=== PATIENT | female | born 2000 | race Asian ===

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

== ENCOUNTER 2021-02-11 14:25 | Emergency (ER) | payer OTHER ==
[~2021-02-11] VITALS: Ht 162.6 cm; Wt 64.4 kg
[2021-02-11 14:45] VITALS: BP 120/61; TEMP 97.7
== END 2021-02-11 16:40 | disposition home or self-care (01) ==
LOC: ED 14:25
PROC: 2W3CX1Z Immobilization of Right Lower Arm using Splint (ICD-10-PCS; principal; 2021-02-11)
DX: S60.211A Contusion of right wrist, initial encounter (principal); S66.811A Strain of other specified muscles, fascia and tendons at wrist and hand level, right hand, initial encounter; W22.09XA Striking against other stationary object, initial encounter; Y92.89 Other specified places as the place of occurrence of the external cause
CPT/HCPCS: 99283

== ENCOUNTER 2022-06-09 08:49 | Emergency (ER) | payer OTHER ==
[~2022-06-09] VITALS: Ht 162.6 cm; Wt 64.4 kg
[2022-06-09 09:30] LABS: PLATELET COUNT 315 K/uL (152-353)
[2022-06-09 09:38] LABS: POTASSIUM 3.4 mmol/L (3.6-5.2)
[2022-06-09 11:38] VITALS: BP 120/67; TEMP 97
== END 2022-06-09 11:41 | disposition home or self-care (01) ==
LOC: ED 08:49
PROVIDERS: Emergency Medicine Emergency Medical Services
DX: O21.0 Mild hyperemesis gravidarum (principal); Z3A.01 Less than 8 weeks gestation of pregnancy
CPT/HCPCS: 36415; 80048; 81002; 84702; 85027; 96360; 96374; 99284; J2405

== ENCOUNTER 2022-07-30 18:07 | Emergency (ER) | payer OTHER ==
[~2022-07-30] VITALS: Ht 165.1 cm; Wt 72.6 kg
[2022-07-30 18:10] VITALS: TEMP 98.9
[2022-07-30 19:15] LABS: PLATELET COUNT 249 K/uL (152-353)
[2022-07-30 19:21] LABS: POTASSIUM 3.1 mmol/L (3.6-5.2)
[2022-07-30 20:40] VITALS: BP 129/68
== END 2022-07-30 20:40 | disposition home or self-care (01) ==
LOC: ED 18:07
PROVIDERS: Emergency Medicine
DX: J10.1 Influenza due to other identified influenza virus with other respiratory manifestations (principal); Z3A.13 13 weeks gestation of pregnancy
CPT/HCPCS: 36415; 80053; 81002; 83690; 85027; 87502; 96360; 96374; 99284; J2405